=== PATIENT | female | born 1950 | race Caucasian/White ===

== ENCOUNTER 2020-10-19 16:13 | Inpatient (IN) | payer MEDICARE ==
[~2020-10-19] VITALS: Ht 170.2 cm; Wt 113.4 kg
[~2020-10-19 16:13] MED LIST: AUGMENTIN 875-1 EACH PO; ECOTRIN81 MG PO; GLUCOPHAGE1000 MG PO; HUMALOG100 UNIT/1 SQ; LEVOXYL175 MCG PO; LIPITOR TAB 2020 MG PO; LOSARTAN POTAS100 MG PO; MOBIC15 MG PO; NORCO 5-325 TA1 EACH PO; VITAMIN C 500500 MG PO
[2020-10-19 18:15] LABS: HEMOGLOBIN 13.1 gm/dl (12.3-15.3); RED BLOOD COUNT 4.33 M/UL (4.00-5.10); WHITE BLOOD COUNT 10.4 K/UL (4.5-11.0)
[2020-10-19] MEDS ORDERED: CELEXA 20MG TAB20 MG PO (22:43)
[2020-10-19] MEDS ORDERED: LEVOTHYROXINE200 MC1 PO (22:43)
[2020-10-20 03:19] LABS: HEMOGLOBIN 13.9 gm/dl (12.3-15.3); RED BLOOD COUNT 4.62 M/UL (4.00-5.10)
[2020-10-20 03:31] LABS: WHITE BLOOD COUNT 7.4 K/UL (4.5-11.0)
[2020-10-20] MEDS ORDERED: LEVEMIR100 UNIT/1 SQ (08:18)
[2020-10-20] MEDS ORDERED: NEURONTIN400 MG PO (08:18)
[2020-10-20] MEDS ORDERED: ISOSORBIDE MON120 MG PO (08:20)
[2020-10-20] MEDS ORDERED: NORVASC5 MG PO (08:21)
[2020-10-20] MEDS ORDERED: COREG 25MG TAB25 MG PO (08:22)
[2020-10-20] MEDS ORDERED: FOSAMAX70 MG PO (08:23)
[2020-10-20] MEDS ORDERED: HYDROCODON-ACE1 EAC4 PO (11:36)
[2020-10-20] MEDS ORDERED: NITROSTAT 0.40.4 MG PO (15:37)
[2020-10-20] MEDS ORDERED: CLINDAMYCIN HC300 MG PO (15:38)
[2020-10-20] MEDS ORDERED: JARDIANCE25 MG PO (15:39)
[2020-10-20] MEDS ORDERED: RANEXA500 MG PO (15:40)
[2020-10-20] MEDS ORDERED: VITAMIN D21250 MCG PO (15:41)
[2020-10-20] MEDS ORDERED: DAILY VALUE1 EACH PO (15:43)
[2020-10-20] MEDS ORDERED: ASPIRIN EC81 MG PO (15:44)
[2020-10-20] MEDS ORDERED: TYLENOL EXTRA500 MG PO (15:44)
[2020-10-20] MEDS ORDERED: EYE MULTIVITAM1 EAC1 PO (15:45)
[2020-10-20] MEDS ORDERED: HUMALOG100 UNIT/3 SC (16:55)
[2020-10-21 04:46] LABS: WHITE BLOOD COUNT 6.1 K/UL (4.5-11.0)
[2020-10-21 04:52] LABS: RED BLOOD COUNT 3.74 M/UL (4.00-5.10)
--- NOTE | 2020-10-22 12:39 | NUR ---
SPOKE WITH DR. SOTO REGARDING PICC LINE CONSULT, ASKED IF WAS OK TO DO MIDLINE POWERGLIDE INSTEAD SINCE IT IS ONLY FOR 2 WEEKS OF ANTIBIOTICS, INSTRUCTED TO WAIT UNTIL IN THE AM AND LET MD REEVALUTE DUE TO THE PATIENTS BLOOD CULTURES HAVE NOT RESULTED YET.
[2020-10-23 12:50] LABS: HEMOGLOBIN 10.4 gm/dl (12.3-15.3); RED BLOOD COUNT 3.51 M/UL (4.00-5.10); WHITE BLOOD COUNT 5.5 K/UL (4.5-11.0)
--- NOTE | 2020-10-23 17:16 | NUR ---
18g x 10cm midline place in right basilic vein using ultrasound guidance. Aspirates and flushes. Dr. Womack approved placement of midline after reviewing labs. No complications.
--- NOTE | 2020-10-23 18:47 | NUR ---
MIDLINE RIGHT BASALIC 10 CM LISSETTE RN
[2020-10-25 07:05] LABS: HEMOGLOBIN 10.8 gm/dl (12.3-15.3); RED BLOOD COUNT 3.77 M/UL (4.00-5.10); WHITE BLOOD COUNT 5.7 K/UL (4.5-11.0)
[2020-10-25 07:25] LABS: BUN/CREATININE RATIO 17 (0-10)
[2020-10-25] MEDS ORDERED: INVANZ 1 GM VIAL1 GM IV (20:28)
[2020-10-25] MEDS ORDERED: ISOSORBIDE MONO60 MG PO (20:28)
[2020-10-25] MEDS ORDERED: COREG6.25 MG PO (20:28)
[2020-10-26] MEDS ORDERED: ZYVOX600 MG PO (12:09)
== END 2020-10-26 17:52 | disposition home health service (06) | DRG 264 ==
LOC: ER1 16:13 → M/S 20:29 → CDU 20:29 → M/S 22:23
PROVIDERS: Internal Medicine Infectious Disease; Physician Assistant Medical; Podiatrist Foot & Ankle Surgery; ADMIT Internal Medicine
PROC: 0HRMXK3 Replacement of Right Foot Skin with Nonautologous Tissue Substitute, Full Thickness, External Approach (ICD-10-PCS; 2020-10-21)
PROC: 0JBQ0ZZ Excision of Right Foot Subcutaneous Tissue and Fascia, Open Approach (ICD-10-PCS; principal; 2020-10-21 11:15)
DX: E11.52 Type 2 diabetes mellitus with diabetic peripheral angiopathy with gangrene (principal); L89.613 Pressure ulcer of right heel, stage 3; L03.115 Cellulitis of right lower limb; E87.1 Hypo-osmolality and hyponatremia; M84.475A Pathological fracture, left foot, initial encounter for fracture; E11.42 Type 2 diabetes mellitus with diabetic polyneuropathy; E11.610 Type 2 diabetes mellitus with diabetic neuropathic arthropathy; E11.628 Type 2 diabetes mellitus with other skin complications; I10 Essential (primary) hypertension; R00.1 Bradycardia, unspecified; M89.40 Other hypertrophic osteoarthropathy, unspecified site; E11.65 Type 2 diabetes mellitus with hyperglycemia; Z20.822 Contact with and (suspected) exposure to COVID-19; I25.10 Atherosclerotic heart disease of native coronary artery without angina pectoris; E03.9 Hypothyroidism, unspecified; E66.01 Morbid (severe) obesity due to excess calories; Z68.39 Body mass index [BMI] 39.0-39.9, adult; Z79.4 Long term (current) use of insulin; Z88.1 Allergy status to other antibiotic agents; Z88.2 Allergy status to sulfonamides
CPT/HCPCS: 36415; 71045; 73630; 73700; 73718; 80048; 80053; 80202; 82550; 82553; 82962; 83605; 83735; 83880; 84443; 84484; 85025; 85652; 86140; 87040; 87070; 87077; 87186; 87205; 93005; 96365; 96375; 97110-GP-CQ; 97162; 97530; 97530-GP-CQ; 99285; J1100; J1335; J1650; J2001; J2405; J2543; J2704; J2795; J3370; J7030; J7040; J7050; J7070; J7120; U0002

== ENCOUNTER → 2020-12-30 | Day surgery (SDC) | payer MEDICARE ==
[~2020-12-30] MED LIST changes: +ASPIRIN EC81 MG PO; +CELEXA 20MG TAB20 MG PO; +CLINDAMYCIN HC300 MG PO; +COREG 25MG TAB25 MG PO; +COREG6.25 MG PO; +DAILY VALUE1 EACH PO; +EYE MULTIVITAM1 EAC1 PO; +EYLEA INJ; +FOSAMAX70 MG PO; +HUMALOG100 UNIT/3 SC; +HYDROCODON-ACE1 EAC4 PO; +INVANZ 1 GM VIAL1 GM IV; +ISOSORBIDE MON120 MG PO; +ISOSORBIDE MONO60 MG PO; +JARDIANCE25 MG PO; +LEVEMIR100 UNIT/1 SQ; +LEVOTHYROXINE200 MC1 PO; +NEURONTIN400 MG PO; +NITROSTAT 0.40.4 MG PO; +NORVASC5 MG PO; +RANEXA500 MG PO; +RANOLAZINE ER500 MG PO; +TYLENOL EXTRA500 MG PO; +VITAMIN C500 M4 PO; +VITAMIN D21250 MCG PO; +VITAMIN E400 UNI4 PO; +ZYVOX600 MG PO; +[UNRECOGNIZED DRUG - OTHER] PO
== END | disposition home or self-care (01) ==
LOC: OR 06:21
DX: E11.621 Type 2 diabetes mellitus with foot ulcer (principal); E11.610 Type 2 diabetes mellitus with diabetic neuropathic arthropathy; L97.529 Non-pressure chronic ulcer of other part of left foot with unspecified severity; L97.519 Non-pressure chronic ulcer of other part of right foot with unspecified severity; E11.40 Type 2 diabetes mellitus with diabetic neuropathy, unspecified; I25.10 Atherosclerotic heart disease of native coronary artery without angina pectoris; E78.5 Hyperlipidemia, unspecified; I10 Essential (primary) hypertension; G47.30 Sleep apnea, unspecified; E66.01 Morbid (severe) obesity due to excess calories; Z88.1 Allergy status to other antibiotic agents; Z88.2 Allergy status to sulfonamides; Z79.82 Long term (current) use of aspirin; Z79.4 Long term (current) use of insulin; Z79.899 Other long term (current) drug therapy
CPT/HCPCS: 77001; 82962; C1769; C1788; J0690; J0780; J1100; J1642; J2001; J2405; J2704; J7030; J7040; J7120

== ENCOUNTER → 2021-02-10 | Outpatient (CLI) | payer MEDICARE | LOC: OPSV 06:53 | DX: E11.621 Type 2 diabetes mellitus with foot ulcer (principal); L97.519 Non-pressure chronic ulcer of other part of right foot with unspecified severity | CPT/HCPCS: Q4133 ==

== ENCOUNTER → 2021-02-17 | Outpatient (CLI) | payer MEDICARE | LOC: OPSV 07:00 | DX: E11.628 Type 2 diabetes mellitus with other skin complications (principal); S91.001A Unspecified open wound, right ankle, initial encounter | CPT/HCPCS: Q4133 ==

== ENCOUNTER → 2021-02-24 | Outpatient (CLI) | payer MEDICARE | LOC: OPSV 07:00 | DX: E11.622 Type 2 diabetes mellitus with other skin ulcer (principal); L97.312 Non-pressure chronic ulcer of right ankle with fat layer exposed ==

== ENCOUNTER → 2021-03-03 | Outpatient (CLI) | payer MEDICARE | LOC: OPSV 07:00 | DX: S91.001A Unspecified open wound, right ankle, initial encounter (principal); E11.40 Type 2 diabetes mellitus with diabetic neuropathy, unspecified | CPT/HCPCS: 87070; 87077; 87186; 87205; Q4133 ==

== ENCOUNTER → 2021-04-22 | Outpatient (CLI) | payer MEDICARE | LOC: KOH-I 14:44 | DX: M25.572 Pain in left ankle and joints of left foot (principal); M25.571 Pain in right ankle and joints of right foot; M79.672 Pain in left foot; M79.671 Pain in right foot; Z89.422 Acquired absence of other left toe(s); Z89.421 Acquired absence of other right toe(s); Z96.661 Presence of right artificial ankle joint | CPT/HCPCS: 73610; 73630 ==

== ENCOUNTER → 2021-06-29 | Outpatient (CLI) | payer MEDICARE | LOC: KOH-I 15:21 | DX: M25.572 Pain in left ankle and joints of left foot (principal); M25.571 Pain in right ankle and joints of right foot; M77.8 Other enthesopathies, not elsewhere classified; M14.672 Charcot's joint, left ankle and foot; M14.671 Charcot's joint, right ankle and foot | CPT/HCPCS: 73610; 73630 ==

== ENCOUNTER 2021-11-06 19:00 | Emergency (ER) | payer MEDICARE ==
[2021-11-06] MEDS ORDERED: OMNICEF 300 MG300 MG PO (21:30)
== END 2021-11-06 21:42 | disposition home or self-care (01) ==
LOC: ER1 19:00
DX: T25.221A Burn of second degree of right foot, initial encounter (principal); E11.40 Type 2 diabetes mellitus with diabetic neuropathy, unspecified; I10 Essential (primary) hypertension; X11.8XXA Contact with other hot tap-water, initial encounter
CPT/HCPCS: 16020; 90471; 90714; 99283